=== PATIENT | female | born 1995 | race Hispanic/Latino ===

== ENCOUNTER 2018-06-02 13:26 | Inpatient (IN) | payer MEDICAID ==
[~2018-06-02] VITALS: Ht 152.4 cm; Wt 87.1 kg
[2018-06-02 14:28] LABS: HEMATOCRIT 36.4 % (36-48); MEAN CORPUSCULAR HEMOGLOBIN 31.4 pg (27.0-33.0); MEAN CORPUSCULAR HGB CONC 35.3 g/dL (32.0-36.0); PLATELET COUNT (AUTO) 207 K/uL (130-400); RED BLOOD CELL COUNT(AUTO) 4.09 MIL/uL (4.00-5.50); RED CELL DISTRIBUTION WIDTH 14.7 % (11.0-15.5); WHITE BLOOD COUNT (AUTO) 10.3 K/uL (4.8-10.8)
[2018-06-02 14:29] LABS: APPEARANCE,URINE CLOUDY (CLEAR); BILIRUBIN,URINE NEGATIVE (NEGATIVE); COLOR,URINE YELLOW (YELLOW); GLUCOSE, URINE (UA) NEGATIVE (NEGATIVE); KETONES,URINE NEGATIVE (NEGATIVE); LEUKOCYTE ESTERASE ,URINE SMALL (NEGATIVE); NITRATE,URINE NEGATIVE (NEGATIVE); OCCULT BLOOD,URINE MODERATE (NEGATIVE); PROTEIN,URINE 30 (NEGATIVE); UROBILINOGEN,URINE 0.2 mg/dL (0.2-1.0)
[2018-06-02 15:09] LABS: BACTERIA,URINE Few /HPF (None Seen)
[2018-06-02 15:10] LABS: SQUAMOUS EPITHELIAL CELL,UR Moderate /HPF (0-2)
[2018-06-02 15:12] LABS: TRANSITIONAL EPI CELLS,URINE Rare /HPF (None Seen)
[2018-06-02] MEDS ORDERED: DINOPROSTONE 10 MG VAGINAL SUPP VG SCH (15:15)
[2018-06-02] MEDS ORDERED: OXYTOCIN-LR 20 UNITS/1000 ML 1,000 ML IV SCH (16:15)
[2018-06-02] MEDS: LACTATED RINGERS 1000ML 1,000 ML IV PRN (16:33)
[2018-06-02 19:30] VITALS: BP 120/78
[2018-06-03] MEDS ORDERED: GLYB5TAB8 PO (00:02)
[2018-06-03] MEDS ORDERED: OXYTOCIN 10 USP UNITS/ML 20 UNIT in LACTATED RINGERS 1000ML 1,000 ML IV SCH (03:00)
[2018-06-03] MEDS ORDERED: MEPERIDINE-PF 50 MG/ML SYG IVP ONE (03:30)
[2018-06-03] MEDS: PROMETHAZINE HCL 25 MG/ML 1ML AMPULE IM SCH (03:34)
[2018-06-03] MEDS: LACTATED RINGERS 1000ML 1,000 ML IV PRN (03:34)
[2018-06-03] MEDS ORDERED: PROMETHAZINE HCL 25 MG/ML 1ML AMPULE IM SCH (08:45)
[2018-06-03] MEDS ORDERED: MEPERIDINE-PF 50 MG/ML SYG IVP SCH (08:45)
[2018-06-03] MEDS ORDERED: MEPERIDINE-PF 50 MG/ML SYG ONE (08:54)
[2018-06-03] MEDS ORDERED: NALOXONE HCL 0.4 MG/1 ML ML IV PRN ×2 (11:00→12:00)
[2018-06-03] MEDS ORDERED: LACTATED RINGERS 500 ML 500 ML IV PRN ×2 (11:00→12:00)
[2018-06-03] MEDS ORDERED: EPHEDRINE SULFATE 50 MG/ML AMPULE IVP PRN ×3 (11:00→19:30)
[2018-06-03 13:23] LABS: HEPATITIS Bs ANTIGEN SCREEN P Negative (Negative)
[2018-06-03] MEDS ORDERED: CEFAZOLIN SODIUM 1 GM VIAL ONE (14:47)
[2018-06-03] MEDS ORDERED: LACTATED RINGERS 1000ML 1,000 ML IV SCH (15:15)
[2018-06-03] MEDS ORDERED: CEFAZOLIN SODIUM 1 GM VIAL IVP PRN (15:51)
[2018-06-03] MEDS ORDERED: SENSORCAINE/DEXT/PF 0.75% 2ML AMP IJ ONE (16:53)
[2018-06-03] MEDS ORDERED: DURAMORPH PF1 MG/ML 10ML AMP IV ONE (16:55)
[2018-06-03] MEDS ORDERED: LIDOCAINE HCL-MPF 2% 10ML AMP IJ ONE ×2 (16:59→17:11)
[2018-06-03] MEDS ORDERED: EPINEPHRINE 1 MG/ML AMPULE ONE (17:00)
[2018-06-03] MEDS ORDERED: FENTANYL CITRATE PF 50 MCG/1 ML 2ML VIAL ONE (17:31)
[2018-06-03] MEDS ORDERED: OXYTOCIN 10 UNIT/1ML 10ML VIAL ONE (17:51)
[2018-06-03] MEDS ORDERED: EPHEDRINE SULFATE 50 MG/ML AMPULE ONE (17:51)
[2018-06-03] MEDS ORDERED: ONDANSETRON HCL 4 MG/2 ML VIAL ONE (17:51)
[2018-06-03] MEDS ORDERED: CEFAZOLIN SODIUM 1 GM VIAL IVP ONE (18:00)
[2018-06-03] MEDS ORDERED: OXYTOCIN 10 USP UNITS/ML ONE (18:27)
[2018-06-03] MEDS ORDERED: OXYTOCIN-LR 20 UNITS/1000 ML 1,000 ML IV PRN (19:19)
[2018-06-03] MEDS ORDERED: PROMETHAZINE HCL 25 MG/ML 1ML AMPULE IM PRN ×2 (19:30)
[2018-06-03] MEDS ORDERED: DiphenhydrAMINE HCL 50 MG/ML VIAL IVP PRN (19:30)
[2018-06-03] MEDS ORDERED: SODIUM CHLORIDE 0.9% 10 ML VIAL IVP PRN (19:30)
[2018-06-03] MEDS ORDERED: METOCLOPRAMIDE 10 MG/2 ML VIAL IVP PRN (19:30)
[2018-06-03] MEDS ORDERED: MEPERIDINE-PF 75 MG/ML SYG IM PRN (19:30)
[2018-06-03] MEDS ORDERED: DEXTROSE 5 %-0.45 % NACL 1,000 ML IV PRN (19:30)
[2018-06-03] MEDS ORDERED: MORPHINE SULFATE 2 MG/ML 1ML SYG IVP PRN (19:30)
[2018-06-03] MEDS ORDERED: NALOXONE HCL 0.4 MG/1 ML ML IVP PRN (19:30)
[2018-06-03] MEDS ORDERED: ONDANSETRON HCL 4 MG/2 ML 8 MG in SODIUM CHLORIDE 0.9% 50 ML IVP NR (19:30)
[2018-06-03] MEDS ORDERED: HYDROCODONE/ACETAMINOPHEN 5/325 MG TAB PO PRN ×2 (19:30)
[2018-06-03] MEDS ORDERED: ONDANSETRON HCL 4 MG/2 ML VIAL IVP PRN ×2 (19:30)
--- NOTE | 2018-06-03 21:00 | NUR ---
Patient: Patient received from L&D via bed accompanied by Cindy Bearden, kaiawhina kura kaupapa maori and Debbie Rosenbaum RN. IV of LR with 20 units infusing at 150 ml/hour, fundus firm 1 finger below the umbilicus, Quinonez Catheter patent flowing clear yellow urine.. Patient oriented to room, call light given. Plan of care discussed with her verbalizes understanding.
[2018-06-03] MEDS ORDERED: PREN-64 PO (21:12)
[2018-06-03 21:35] VITALS: BP 120/62
[2018-06-03 23:10] LABS: HEMATOCRIT 33.2 % (36-48)
[2018-06-04 00:29] VITALS: BP 117/66
--- NOTE | 2018-06-04 03:00 | NUR ---
Activity: Farhana care done, abdominal binder applied patient assisted to get up in bed and sit at bedside chair. She tolerated it well.
[2018-06-04] MEDS: PROMETHAZINE HCL 25 MG/ML 1ML AMPULE IM SCH ×2 (03:30→20:24)
[2018-06-04 05:15] LABS: HEMATOCRIT 31.5 % (36-48); MEAN CORPUSCULAR HGB CONC 35.3 g/dL (32.0-36.0); PLATELET COUNT (AUTO) 176 K/uL (130-400); RED BLOOD CELL COUNT(AUTO) 3.58 MIL/uL (4.00-5.50); RED CELL DISTRIBUTION WIDTH 14.8 % (11.0-15.5); WHITE BLOOD COUNT (AUTO) 14.3 K/uL (4.8-10.8)
[2018-06-04 05:31] VITALS: BP 103/61
[2018-06-04 07:26] VITALS: BP 101/46
[2018-06-04] MEDS ORDERED: ACETAMINOPHEN-CODEINE 300/30MG TAB PO PRN (07:45)
[2018-06-04] MEDS ORDERED: HYDROCODONE/ACETAMINOPHEN 5/325 MG TAB PO PRN (07:45)
[2018-06-04] MEDS ORDERED: BISACODYL 10 MG SUPP.RECT RC PRN (07:45)
[2018-06-04] MEDS ORDERED: DIPHENHYDRAMINE HCL 25 MG CAPSULE PO PRN (07:45)
[2018-06-04] MEDS ORDERED: ACETAMINOPHEN EXTRA STRENGTH 500 MG TABLET PO PRN (07:45)
[2018-06-04] MEDS: DOCUSATE SODIUM 100 MG CAP PO SCH ×2 (08:42→20:54)
[2018-06-04] MEDS: SIMETHICONE 80 MG TAB.CHEW PO PRN ×3 (08:43→20:54)
[2018-06-04] MEDS: IBUPROFEN 600 MG TABLET PO PRN ×2 (08:43→15:25)
[2018-06-04] MEDS: DIPH,PERTUSS(ACELL),TET VAC/PF 0.5 ML VIAL IM SCH (09:01)
--- NOTE | 2018-06-04 09:40 | NUR ---
CANALES CANALES REMOVED, CATHETER TIP INTACT, 700mL OF LIGHT IBIS URINE REMOVED, BEVERLEY-CARE PROVIDED; DRESSING OVER INCISION REMOVED EXPOSING INCISION w/ HIDDEN STITCH, DRY AND INTACT, ABDOMINAL BINDER PLACED OVER FOR SUPPORT; SCDs REMOVED, TEDs ADJUSTED; PT OOB TO CHAIR, STEADY GAIT, TOLERATED WELL; RETURN DEMONSTRATION COMPLETED ON I.S.; POC DISCUSSED WITH PT AND SPOUSE, PT VERBALIZED UNDERSTANDING Addendum: 06/04/18 at 1958 by PALMA CERON RN Amended: Links added.
--- NOTE | 2018-06-04 11:40 | NUR ---
ACTIVITY PT AMBULATED HALLWAY, STEADY GAIT, NO FLATUS YET, TOLERATING WELL
[2018-06-04 11:43] VITALS: BP 106/61
--- NOTE | 2018-06-04 14:46 | NUR ---
ACTIVITY PT AMBULATED TO BATHROOM, WAS ABLE TO VOID; POC DISCUSSED, PT VERBALIZED UNDERSTANDING
[2018-06-04 15:21] VITALS: BP 103/60
--- NOTE | 2018-06-04 17:55 | NUR ---
ACTIVITY PT AMBULATING HALLWAY, STEADY GAIT, TOLERATING WELL, PASSING FLATUS, FEELING BETTER EVERY TIME SHE GETS UP
[2018-06-04 20:36] VITALS: BP 102/71
[2018-06-04] MEDS: IBUPROFEN 800 MG TAB PO SCH (20:55)
[2018-06-05 00:53] VITALS: BP 113/63
[2018-06-05 04:16] VITALS: BP 119/70
[2018-06-05] MEDS: IBUPROFEN 800 MG TAB PO SCH (05:01)
[2018-06-05 07:34] VITALS: BP 126/72
[2018-06-05] MEDS: DIPH,PERTUSS(ACELL),TET VAC/PF 0.5 ML VIAL IM SCH (09:00)
[2018-06-05] MEDS: DOCUSATE SODIUM 100 MG CAP PO SCH (09:11)
[2018-06-05] MEDS: IBUPROFEN 600 MG TABLET PO PRN (09:12)
[2018-06-05 11:19] VITALS: BP 117/67
--- NOTE | 2018-06-05 14:00 | NUR ---
DISCHARGE PATIENT LEFT UNIT VIA WHEELCHAIR WITH BABY IN ARMS. PERSONAL VEHICLE USED FOR TRANSPORTATION. BABY SECURE IN CARSEAT. NO COMPLAINTS OR CONCERNS ADDRESSED FROM PATIENT ON DISCHARGE.
== END 2018-06-05 14:00 | disposition home or self-care (01) | DRG 540 ==
LOC: LDH 13:26 → OBSVTOIN 13:26 → WSH 06-03 20:59
PROVIDERS: ADMIT Obstetrics & Gynecology; ATTEND Obstetrics & Gynecology
PROC: 3E02340 Introduction of Influenza Vaccine into Muscle, Percutaneous Approach (ICD-10-PCS; 2018-06-03)
PROC: 3E0234Z Introduction of Serum, Toxoid and Vaccine into Muscle, Percutaneous Approach (ICD-10-PCS; 2018-06-03)
PROC: 10D00Z1 Extraction of Products of Conception, Low, Open Approach (ICD-10-PCS; principal; 2018-06-03 17:53)
DX: O24.425 Gestational diabetes mellitus in childbirth, controlled by oral hypoglycemic drugs (principal); O32.4XX0 Maternal care for high head at term, not applicable or unspecified; Z37.0 Single live birth; Z3A.39 39 weeks gestation of pregnancy; Z23 Encounter for immunization
CPT/HCPCS: 36415; 59510; 81001; 82948; 85014; 85018; 85027; 86592; 86850; 86900; 86901; 87340; 90715; A4314; A4344; A4450; A4606; G0008; G0378; J0171; J0690; J2175; J2274; J2405; J2550; J2590; J3010; J3490; J7120; Q2035